=== PATIENT | female | born 1980 | race American Indian/Alaskan Native ===

== ENCOUNTER 2016-10-26 12:50 | Emergency (ER) | payer MEDICAID ==
[2016-10-26 12:50] VITALS: BMI 40.2
[2016-10-26 12:55] VITALS: BP 146/89; PULSE 61; RESP 16; TEMP 97.6; O2SAT 99
[2016-10-26] MEDS ORDERED: Naproxen 550 mg Tab PO STA (14:14)
[2016-10-26] MEDS ORDERED: Naproxen 550 mg Tab PO ONE (14:17)
--- NOTE | 2016-10-26 14:17 | C.PDOC ---
Time Seen by Provider: 10/26/16 13:12 Chief Complaint (Nursing): Cough, Cold, Congestion History Per: Patient Onset/Duration Of Symptoms: Days (about 2 weeks) Current Symptoms Are (Timing): Still Present Location Of Pain: Throat Associated Symptoms: Sore Throat, Cough, Sputum Severity: Moderate Additional History Per: Prior Records Past Medical History Reviewed: Historical Data, Nursing Documentation, Vital Signs Vital Signs: Last Vital Signs Temp 97.6 F 10/26/16 12:51 Pulse 61 10/26/16 12:51 Resp 16 10/26/16 12:51 BP 146/89 10/26/16 12:51 Pulse Ox 99 10/26/16 12:51 - Medical History PMH: Arthritis (rhematoid arthritis), Asthma, HTN - [facility] Procedures ASPIRAT CURET-POST DELIV (07/05/00) INJECT/INFUSE ELECTROLYT (05/10/14) INJECT/INFUSE NEC (11/24/12) LOW CERVICAL (07/01/99) NEBULIZER THERAPY (08/05/02) SHOULDER ARTHROPLAST NEC (08/31/05) Family History: States: Unknown Family Hx - Social History Hx Tobacco Use: No (quit 1 month ago) Hx Alcohol Use: No Hx Substance Use: No Review Of Systems Except As Marked, All Systems Reviewed And Found Negative. Constitutional: Positive for: Fever (resolved) ENT: Positive for: Throat Pain (resolved after abx but returned 3 days ago) Cardiovascular: Negative for: Chest Pain Respiratory: Positive for: Cough, Sputum. Negative for: Shortness of Breath, Hemoptysis Gastrointestinal: Negative for: Vomiting, Abdominal Pain Musculoskeletal: Negative for: Neck Pain Skin: Negative for: Rash Neurological: Negative for: Weakness, Numbness, Seizures, Altered Mental Status Physical Exam - Physical Exam Appears: Non-toxic, No Acute Distress Skin: Normal Color, Warm, Dry, No Rash Head: Atraumatic, Normacephalic Eye(s): bilateral: Normal Inspection, PERRL, EOMI Throat: Erythema, Exudate, No Drooling, No Mass Neck: Normal ROM, Supple Lymphatic: No Adenopathy Cardiovascular: Rhythm Regular Respiratory: Normal Breath Sounds, No Accessory Muscle Use Gastrointestinal/Abdominal: Soft, No Tenderness Back: No CVA Tenderness Extremity: Normal ROM, No Calf Tenderness Neurological/Psych: Oriented x3, Normal Speech, Normal Motor, Normal Sensation ED Course And Treatment - Laboratory Results Interpretation Of Abnormal: Rapid Strep negative. O2 Sat by Pulse Oximetry: 99 Pulse Ox Interpretation: Normal Disposition Counseled Patient/Family Regarding: Studies Performed, Diagnosis, Need For Followup, Rx Given - Disposition Disposition: HOME/ ROUTINE Disposition Time: 14:18 Condition: STABLE Additional Instructions: Follow up with your doctor. Return to the ER if you develop fever, shortness of breath, trouble swallowing, worsening of symptoms or if you have any other concerns. Prescriptions: Azithromycin [Zithromax] 1 dose PO DAILY #1 pkt Instructions: Acute Bronchitis (ED) - Clinical Impression Clinical Impression: Bronchitis, Upper respiratory infection
== END 2016-10-26 14:22 | disposition home or self-care (01) ==
LOC: C.ER 12:50
DX: J06.9 Acute upper respiratory infection, unspecified (principal); J40 Bronchitis, not specified as acute or chronic

== ENCOUNTER 2017-04-06 12:08 | Emergency (ER) | payer MEDICAID ==
[2017-04-06 12:08] VITALS: BMI 40.2
[2017-04-06 12:20] VITALS: O2SAT 98
[2017-04-06] MEDS ORDERED: Apap-Butalbital-Caffeine 325-50-40mg Tab PO STA (12:44)
--- NOTE | 2017-04-06 13:27 | C.PDOC ---
History Of Present Illness 36-year-old female, PMHx includes Hypertension, presents to the emergency department with complaints of a bilateral headache for the past three days, that radiates down her right posterior neck. Patient states her blood pressure was also elevated. States she took Excederin without any improvement. Patient hasn't been taking her hypertension medication since gastric sleeve surgery, because she did not need it. She admits to mild associated light sensitivity. Denies vomiting, dizziness, visual changes, or any other associated symptoms. No other complaints at this time. Time Seen by Provider: 04/06/17 12:27 Chief Complaint (Nursing): High Blood Pressure History Per: Patient History/Exam Limitations: no limitations Onset/Duration Of Symptoms: Days Past Medical History Reviewed: Historical Data, Nursing Documentation, Vital Signs Vital Signs: Last Vital Signs Temp 98.0 F 04/06/17 15:23 Pulse 67 04/06/17 15:23 Resp 20 04/06/17 15:23 BP 164/100 H 04/06/17 15:23 Pulse Ox 98 04/06/17 15:23 - Medical History PMH: Arthritis (rhematoid arthritis), Asthma, HTN, Rheumatoid Arthritis - [facility] Procedures ASPIRAT CURET-POST DELIV (07/05/00) INJECT/INFUSE ELECTROLYT (05/10/14) INJECT/INFUSE NEC (11/24/12) LOW CERVICAL (07/01/99) NEBULIZER THERAPY (08/05/02) SHOULDER ARTHROPLAST NEC (08/31/05) Family History: States: Unknown Family Hx - Social History Hx Tobacco Use: No (quit 1 month ago) Hx Alcohol Use: Yes Hx Substance Use: No - Immunization History Hx Tetanus Toxoid Vaccination: Yes Hx Influenza Vaccination: Yes (2017) Hx Pneumococcal Vaccination: Yes Review Of Systems Except As Marked, All Systems Reviewed And Found Negative. Constitutional: Negative for: Fever Cardiovascular: Negative for: Chest Pain Respiratory: Negative for: Shortness of Breath Gastrointestinal: Negative for: Nausea, Vomiting Musculoskeletal: Negative for: Back Pain Neurological: Positive for: Headache. Negative for: Weakness, Numbness, Dizziness Physical Exam - Physical Exam Appears: Non-toxic, No Acute Distress, Other (mild painful distress) Skin: Warm, Dry, No Rash Head: Atraumatic, Normacephalic Eye(s): bilateral: Normal Inspection, PERRL, EOMI Nose: Normal Oral Mucosa: Moist Lips: Normal Appearing Neck: Normal ROM Cardiovascular: Rhythm Regular, No Murmur Respiratory: Normal Breath Sounds, No Accessory Muscle Use Extremity: Normal ROM Neurological/Psych: Oriented x3, Normal Speech, Other (no focal deficit) ED Course And Treatment O2 Sat by Pulse Oximetry: 98 Progress Note: Patient treated with Reglan and Fioricet. Disposition Counseled Patient/Family Regarding: Studies Performed, Diagnosis, Need For Followup, Rx Given - Disposition Referrals: Chela Howard DO [[facility]] - Disposition: HOME/ ROUTINE Disposition Time: 15:20 Additional Instructions: FOLLOW UP WITH DR HOWARD IN 1-2 DAYS RETURN TO ER IF YOU HAVE ANY CONCERNING SYMPTOMS Prescriptions: Acetaminophen/Butalbital/Caf [Fioricet] 1 tab PO TID PRN #20 tab PRN Reason: Headache Instructions: Migraine Headache (ED) Forms: [employer] (Slovak) Print Language: SURINAMESE - Clinical Impression Clinical Impression: Migraine headache - Scribe Statement The provider has reviewed the documentation as recorded by the Scribe (Nu Llamas) All medical record entries made by the Scribe were at my direction and personally dictated by me. I have reviewed the chart and agree that the record accurately reflects my personal performance of the history, physical exam, medical decision making, and the department course for this patient. I have also personally directed, reviewed, and agree with the discharge instructions and disposition.
[2017-04-06] MEDS ORDERED: Apap-Butalbital-Caffeine 325-50-40mg Tab ONE (13:28)
[2017-04-06 15:31] VITALS: BP 164/100; PULSE 67; RESP 20; TEMP 98
== END 2017-04-06 15:32 | disposition home or self-care (01) ==
LOC: C.ER 12:08
DX: G43.909 Migraine, unspecified, not intractable, without status migrainosus (principal); I10 Essential (primary) hypertension; M06.9 Rheumatoid arthritis, unspecified
CPT/HCPCS: 96374; 99285; J2765

== ENCOUNTER 2017-07-01 10:33 | Emergency (ER) | payer MEDICAID ==
[2017-07-01 10:42] VITALS: PULSE 76; RESP 16; TEMP 98.1; O2SAT 98
[2017-07-01 10:51] VITALS: BMI 36.9
[2017-07-01] MEDS ORDERED: Tdap Vaccine 0.5 ml Vial (10-64 yrs) IM ONE ×2 (11:09→11:19)
[2017-07-01] MEDS ORDERED: Silver Sulfadiazine 1% Cream (20 gm) TOP STA (11:17)
[2017-07-01] MEDS ORDERED: Silver Sulfadiazine 1% Cream (20 gm) ONE (11:37)
[2017-07-01 12:00] VITALS: BP 140/86
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
== END 2017-07-01 12:25 | disposition home or self-care (01) ==
LOC: C.ER 10:33
DX: T22.211A Burn of second degree of right forearm, initial encounter (principal); T24.211A Burn of second degree of right thigh, initial encounter; X12.XXXA Contact with other hot fluids, initial encounter; I10 Essential (primary) hypertension; M06.9 Rheumatoid arthritis, unspecified; Z23 Encounter for immunization

== ENCOUNTER 2017-11-09 13:20 | Emergency (ER) | payer MEDICAID ==
[2017-11-09 13:20] VITALS: BMI 36.9
[2017-11-09 13:29] VITALS: BP 151/102; PULSE 89; RESP 18; TEMP 98.6; O2SAT 99
--- NOTE | 2017-11-09 13:41 | C.PDOC ---
History Of Present Illness 37 year old female patient presents to the ER with left ear pain and itching since yesterday. Patient denies no fever, cough, nasal congestion, no ear discharge, change in hearing, headache, dizziness, and chest pain. Patient notes she did not take BP medication this morning. Time Seen by Provider: 11/09/17 13:28 Chief Complaint (Nursing): ENT Problem History Per: Patient History/Exam Limitations: no limitations Onset/Duration Of Symptoms: Hrs Current Symptoms Are (Timing): Still Present Associated Symptoms: denies: Fever, Cough, Other (ear discharge, dizziness, chest pain, D[place], and nasal congestion) Past Medical History Reviewed: Historical Data, Nursing Documentation, Vital Signs Vital Signs: Last Vital Signs Temp 98.6 F 11/09/17 13:27 Pulse 89 11/09/17 13:27 Resp 18 11/09/17 13:27 BP 151/102 H 11/09/17 13:27 Pulse Ox 99 11/09/17 17:35 - Medical History PMH: Arthritis (rhematoid arthritis), Asthma, HTN, Rheumatoid Arthritis - [facility] Procedures ASPIRAT CURET-POST DELIV (07/05/00) INJECT/INFUSE ELECTROLYT (05/10/14) INJECT/INFUSE NEC (11/24/12) LOW CERVICAL (07/01/99) NEBULIZER THERAPY (08/05/02) SHOULDER ARTHROPLAST NEC (08/31/05) Family History: States: Unknown Family Hx - Social History Hx Tobacco Use: No (quit 1 month ago) Hx Alcohol Use: Yes Hx Substance Use: No - Immunization History Hx Tetanus Toxoid Vaccination: Yes Hx Influenza Vaccination: Yes (2016) Hx Pneumococcal Vaccination: Yes Review Of Systems Except As Marked, All Systems Reviewed And Found Negative. Constitutional: Negative for: Fever, Other (headache) ENT: Negative for: Ear Discharge, Nose Congestion, Other (change in hearing) Cardiovascular: Negative for: Chest Pain Respiratory: Negative for: Cough Neurological: Negative for: Dizziness Physical Exam - Physical Exam Appears: Well, Non-toxic, No Acute Distress Skin: Normal Color, Warm, Dry Head: Atraumatic, Normacephalic Eye(s): bilateral: Normal Inspection, EOMI Ear(s): Left: Other (erythema to canal; mild swelling; no exudates; TM is nml; mild tragus tenderness; no mastoid tenderness), Right: Normal Nose: Normal Oral Mucosa: Moist Throat: Normal, No Erythema Neck: Normal ROM, Supple Chest: Symmetrical Cardiovascular: Rhythm Regular Respiratory: Normal Breath Sounds, No Accessory Muscle Use, Other (speaking in full sentences) Neurological/Psych: Oriented x3, Normal Speech ED Course And Treatment O2 Sat by Pulse Oximetry: 99 (RA) Pulse Ox Interpretation: Normal Progress Note: Pt was offered BP medication, she notes she has hers and she will take it. Instructed to follow up with assistant customer service manager in 1-2 days. Disposition - Disposition Referrals: Shabbir Donald MD [Staff Provider] - Disposition: HOME/ ROUTINE Disposition Time: 13:38 Condition: STABLE Additional Instructions: Follow up with the ENT in 1-2 days. Return to ER if symptoms persist or worsen. Prescriptions: Neomycin/Polymyxin/Hydrocortis [Cortisporin Otic Susp] 4 drop OT TID #1 bottle Instructions: Outer Ear Infection (DC) Forms: [employer] (Irish) - Clinical Impression Clinical Impression: Otitis externa - PA / SENIOR SALES OPERATIONS MANAGER / Resident Statement / has reviewed & agrees with the documentation as recorded. - Scribe Statement The provider has reviewed the documentation as recorded by the Tiff Millan Do All medical record entries made by the Scribe were at my direction and personally dictated by me. I have reviewed the chart and agree that the record accurately reflects my personal performance of the history, physical exam, medical decision making, and the department course for this patient. I have also personally directed, reviewed, and agree with the discharge instructions and disposition.
== END 2017-11-09 13:43 | disposition home or self-care (01) ==
LOC: C.ER 13:20
DX: H60.92 Unspecified otitis externa, left ear (principal)

== ENCOUNTER 2018-02-28 15:19 | Emergency (ER) | payer MEDICAID ==
[2018-02-28 15:19] VITALS: BMI 36.9
[2018-02-28 15:30] VITALS: PULSE 79; TEMP 98.7
--- NOTE | 2018-02-28 16:08 | C.PDOC ---
History Of Present Illness 37-year-old female presents to the ED for evaluation of intermittent elevated blood pressure for 1 week. Patient notes initially the elevated blood pressure was associated with headaches but the last 3 days she reports no headaches. Admits to taking Coreg 25ml PO BID, however for the last few days she notes taking double the dose in attempt to lower the blood pressure with no improvement. Denies chest pain, slurred speech, facial droop, palpitations, shortness of breath, changes in vision, fever, and any other associated sympt oms. Time Seen by Provider: 02/28/18 15:37 Chief Complaint (Nursing): High Blood Pressure History Per: Patient History/Exam Limitations: no limitations Onset/Duration Of Symptoms: Days Current Symptoms Are (Timing): Still Present Associated Symptoms: Headache Past Medical History Reviewed: Historical Data, Nursing Documentation, Vital Signs Vital Signs: Last Vital Signs Temp 98.7 F 02/28/18 15:24 Pulse 79 02/28/18 15:24 Resp 19 02/28/18 15:24 BP 157/87 H 02/28/18 15:46 Pulse Ox 100 02/28/18 15:24 - Medical History PMH: Arthritis (rhematoid arthritis), Asthma, HTN, Rheumatoid Arthritis Denies: Depression, Chronic Kidney Disease - [facility] Procedures ASPIRAT CURET-POST DELIV (07/05/00) INJECT/INFUSE ELECTROLYT (05/10/14) INJECT/INFUSE NEC (11/24/12) LOW CERVICAL (07/01/99) NEBULIZER THERAPY (08/05/02) SHOULDER ARTHROPLAST NEC (08/31/05) Family History: States: Unknown Family Hx - Social History Hx Tobacco Use: No (quit 1 month ago) Hx Alcohol Use: No Hx Substance Use: No - Immunization History Hx Tetanus Toxoid Vaccination: No Hx Influenza Vaccination: Yes Hx Pneumococcal Vaccination: No Review Of Systems Constitutional: Negative for: Fever Eyes: Negative for: Vision Change Cardiovascular: Negative for: Chest Pain, Palpitations Respiratory: Negative for: Shortness of Breath Neurological: Positive for: Headache. Negative for: Weakness, Numbness, Incoordination, Other (slurred speech. facial droop.) Physical Exam - Physical Exam Appears: Well, Non-toxic, No Acute Distress Skin: Normal Color, Warm, Dry Head: Atraumatic, Normacephalic Eye(s): bilateral: Normal Inspection Oral Mucosa: Moist Neck: Normal ROM, Supple Chest: Symmetrical, No Deformity Cardiovascular: Rhythm Regular, No Murmur Respiratory: Normal Breath Sounds, No Rales, No Rhonchi, No Wheezing Gastrointestinal/Abdominal: Normal Exam, Soft, No Tenderness Extremity: Normal ROM, No Tenderness, No Pedal Edema, No Calf Tenderness, Capillary Refill (less than 2 seconds.), No Swelling Neurological/Psych: Oriented x3, Normal Speech, Normal Motor, Normal Sensation, Normal Reflexes ED Course And Treatment - Laboratory Results Result Diagrams: 02/28/18 16:11 02/28/18 16:11 O2 Sat by Pulse Oximetry: 100 (RA) Pulse Ox Interpretation: Normal Progress Note: Plan: Blood sent. [place]. Progress/Update: Patient stable for discharge home. Prescribed [place]. Disposition Counseled Patient/Family Regarding: Studies Performed, Diagnosis, Need For Followup, Rx Given - Disposition Referrals: Chela Howard DO [Doctor [facility]] - Disposition: HOME/ ROUTINE Disposition Time: 17:15 Condition: STABLE Additional Instructions: FOLLOW UP WITH YOUR DOCTOR IN 1-2 DAYS RETURN TO ER IF SYMPTOMS WORSEN Prescriptions: Chlorthalidone [Hygroton] 25 mg PO DAILY #30 tab Instructions: High Blood Pressure (DC) Forms: [employer] (Mohawk) Print Language: KYRGYZ - Clinical Impression Clinical Impression: Hypertension - Scribe Statement The provider has reviewed the documentation as recorded by the Scribe (Virginia Samayoa) Provider Attestation: All medical record entries made by the Scribe were at my direction and personally dictated by me. I have reviewed the chart and agree that the record accurately reflects my personal performance of the history, physical exam, medical decision making, and the department course for this patient. I have also personally directed, reviewed, and agree with the discharge instructions and disposition.
[2018-02-28 16:18] LABS: BASO % 0.9 % (0.0-2.0); EOS # 0.1 K/uL (0.0-0.7); HEMOGLOBIN 12.3 g/dL (11.0-16.0); LYMPH # 1.6 K/uL (1.0-4.3); LYMPH % 34.5 % (20.0-40.0); MEAN CELL VOLUME 101.1 fL (81.0-99.0); MEAN CORPUSCULAR HEMOGLOBIN 35.1 pg (27.0-31.0); MEAN CORPUSCULAR HGB CONC 34.7 g/dL (33.0-37.0); MEAN PLATELET VOLUME 8.9 fL (7.2-11.7); MONO # 0.6 K/uL (0.0-0.8); MONO % 12.5 % (0.0-10.0); NEUT # 2.3 K/uL (1.8-7.0); NEUT % 50.1 % (50.0-75.0); NRBC % 0.1 % (0.0-2.0); RBC 3.5 Mil/uL (3.80-5.20); RED CELL DISTRIBUTION WIDTH 12.4 % (11.5-14.5); WHITE BLOOD COUNT 4.6 K/uL (4.8-10.8)
[2018-02-28 16:28] LABS: ALB/GLOB RATIO 1.2 (1.0-2.1); ALBUMIN 4.1 g/dL (3.5-5.0); ALT/SGPT 19 U/L (9-52); AST/SGOT 22 U/L (14-36); BLOOD UREA NITROGEN 18 mg/dL (7-17); CALCIUM 8.8 mg/dl (8.6-10.4); GFR NON-AFRICAN AMERICAN > 60
[2018-02-28 17:39] VITALS: BP 165/92; RESP 20; O2SAT 99
== END 2018-02-28 17:39 | disposition home or self-care (01) ==
LOC: C.ER 15:19
DX: I10 Essential (primary) hypertension (principal)

== ENCOUNTER 2018-05-05 10:26 | Emergency (ER) | payer OTHER, MEDICAID ==
[2018-05-05 10:26] VITALS: BMI 36.9
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
[2018-05-05 12:26] VITALS: BP 122/78; PULSE 82; RESP 16; TEMP 98.4
[2018-05-05 16:07] VITALS: O2SAT 98
== END 2018-05-05 12:28 | disposition home or self-care (01) ==
LOC: C.ER 10:26
DX: S13.4XXA Sprain of ligaments of cervical spine, initial encounter (principal); V89.2XXA Person injured in unspecified motor-vehicle accident, traffic, initial encounter

== ENCOUNTER 2018-05-16 13:05 | Emergency (ER) | payer OTHER, MEDICAID ==
[2018-05-16 13:05] VITALS: BMI 36.9
[2018-05-16 13:25] VITALS: BP 136/88; PULSE 76; RESP 18; TEMP 98.6; O2SAT 100
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
== END 2018-05-16 14:40 | disposition home or self-care (01) ==
LOC: C.ER 13:05
DX: M54.5 Low back pain (principal); M25.511 Pain in right shoulder
CPT/HCPCS: 81025; 96372; 99283; J1885

== ENCOUNTER 2018-08-23 11:48 | Outpatient (CLI) | payer MEDICAID | END 2018-08-23 11:49 | disposition home or self-care (01) | LOC: C.RADH 11:48 ==